=== PATIENT | female | born 1955 | race Caucasian/White ===

== ENCOUNTER 2023-04-18 06:45 | Day surgery (SDC) | payer OTHER ==
[~2023-04-18] VITALS: Ht 160 cm; Wt 83.0 kg
[2023-04-18] MEDS ORDERED: MEPERIDINE 100 MG INJ. 100 MG/ML VIAL ONE (07:14)
[2023-04-18] MEDS ORDERED: MIDAZOLAM HCL 5 MG/5 ML VIAL ONE (07:14)
[2023-04-18 12:46] VITALS: O2SAT 98
[2023-04-18 16:40] VITALS: BP_SYST 115; PULSE 69; RESP 18
== END 2023-04-18 09:28 | disposition home or self-care (01) ==
LOC: SDS 06:45 → SMU 06:47 → EDSEX 08:30 → SDS 09:28
PROVIDERS: ATTEND Internal Medicine Gastroenterology
DX: Z12.11 Encounter for screening for malignant neoplasm of colon (principal); K57.30 Diverticulosis of large intestine without perforation or abscess without bleeding; K64.8 Other hemorrhoids; M19.90 Unspecified osteoarthritis, unspecified site; F32.A Depression, unspecified; M79.7 Fibromyalgia; Z98.84 Bariatric surgery status; Z79.899 Other long term (current) drug therapy
CPT/HCPCS: 99152; 82962; G0121; G0378; J2250; J2175; 45378

== ENCOUNTER 2023-07-09 11:24 | Inpatient (IN) | payer OTHER ==
[~2023-07-09] VITALS: Ht 160 cm; Wt 87.8 kg
[2023-07-09 11:36] VITALS: BP_SYST 136; PULSE 103; RESP 18; TEMP 97.9; O2SAT 94
[2023-07-09] MEDS ORDERED: iohexoL 350 mgI/mL, 100 ML INFUS..BTL IV ONE (11:50)
[2023-07-09 12:31] LABS: BASOPHILS # (AUTO) 0.1 K/uL (0.0-0.2); EOSINOPHILS # (AUTO) 0.1 K/uL (0.0-0.4); EOSINOPHILS % (AUTO) 1.5 % (0.0-4.0); HEMATOCRIT 36.7 % (36-48); HEMOGLOBIN 12.6 g/dL (12.0-16.0); LYMPHOCYTES % (AUTO) 37.6 % (20.5-51.5); MEAN CORPUSCULAR HEMOGLOBIN 30 pg (27-31); MEAN CORPUSCULAR HGB CONC 34 % (32-36); MEAN CORPUSCULAR VOLUME 87 fL (79.0-98.0); MONOCYTES # (AUTO) 0.5 K/uL (0.0-1.0); MONOCYTES % (AUTO) 6.5 % (1.7-9.3); NEUTROPHILS # (AUTO) 4.2 K/uL (1.8-7.7); NEUTROPHILS % (AUTO) 53.4 % (40.0-70.0); PLATELET COUNT (AUTO) 250 K/uL (130-430); RED BLOOD CELL COUNT(AUTO) 4.21 MIL/uL (4.2-6.2); WHITE BLOOD COUNT (AUTO) 7.9 K/uL (4.8-10.8)
[2023-07-09 12:43] LABS: CALCIUM 9.4 mg/dL (8.4-11.0); CREATININE 0.86 mg/dL (0.55-1.30); POTASSIUM 4.6 mmol/L (3.5-5.1)
[2023-07-09 12:45] LABS: INR 1.1 (0.8-1.2); PROTHROMBIN TIME 11.2 SECS (9.5-12.5)
[2023-07-09] MEDS: ASPIRIN 81 MG TAB.CHEW PO ONE (14:11)
[2023-07-09] MEDS ORDERED: ACETAMINOPHEN 325 MG TABLET PO PRN (14:45)
[2023-07-09] MEDS ORDERED: HYDROcodone/ACETAMIN 5-325 MG TAB (NORCO/ VICODIN) PO PRN (15:15)
[2023-07-09] MEDS ORDERED: IPRATROPIUM/ALBUTEROL SULFATE 3 ML AMPUL.NEB (DUONEB) INH PRN (15:15)
[2023-07-09] MEDS ORDERED: ZOLPIDEM TARTRATE 5 MG TABLET PO PRN (15:15)
[2023-07-09] MEDS ORDERED: LORazepam 2 MG/ML VIAL IVP PRN (15:15)
[2023-07-09] MEDS ORDERED: ROSU20TA2 PO (16:57)
[2023-07-09] MEDS ORDERED: LOSA1TAB43 PO (16:57)
[2023-07-09] MEDS ORDERED: METF-1069 PO (16:57)
[2023-07-09] MEDS ORDERED: MULT-1089 PO (16:57)
[2023-07-09 17:39] VITALS: BP_SYST 132; PULSE 80; O2SAT 98
[2023-07-09] MEDS ORDERED: ROSUVASTATIN CALCIUM 5 MG/TAB (CRESTOR) PO SCH (21:00)
[2023-07-09 22:23] VITALS: BP_SYST 126; PULSE 67; RESP 18; TEMP 98.4
[2023-07-09] MEDS: ATORVASTATIN 20 MG TABLET PO SCH (22:53)
[2023-07-10] VITALS (8 sets, daily range): BP systolic 94–131; PULSE 64–80; RESP 18; TEMP 97–98.7; O2SAT 95–99
[2023-07-10 04:37] LABS: BASOPHILS # (AUTO) 0.1 K/uL (0.0-0.2); BASOPHILS % (AUTO) 0.8 % (0.0-2.0); EOSINOPHILS # (AUTO) 0.2 K/uL (0.0-0.4); EOSINOPHILS % (AUTO) 2.3 % (0.0-4.0); HEMATOCRIT 36.9 % (36-48); HEMOGLOBIN 12.5 g/dL (12.0-16.0); LYMPHOCYTES # (AUTO) 3.1 K/uL (1.0-5.5); MEAN CORPUSCULAR HEMOGLOBIN 30 pg (27-31); MEAN CORPUSCULAR HGB CONC 34 % (32-36); MEAN CORPUSCULAR VOLUME 87 fL (79.0-98.0); MONOCYTES # (AUTO) 0.6 K/uL (0.0-1.0); NEUTROPHILS # (AUTO) 3.8 K/uL (1.8-7.7); NEUTROPHILS % (AUTO) 48.9 % (40.0-70.0); PLATELET COUNT (AUTO) 247 K/uL (130-430); RED BLOOD CELL COUNT(AUTO) 4.23 MIL/uL (4.2-6.2); RED CELL DISTRIBUTION WIDTH 13.9 % (9.0-15.0); WHITE BLOOD COUNT (AUTO) 7.9 K/uL (4.8-10.8)
[2023-07-10 04:39] LABS: HEMOGLOBIN A1C 5.73 % (<5.7)
[2023-07-10 05:06] LABS: ALBUMIN 3.4 g/dL (3.4-4.8); CALCIUM 9.7 mg/dL (8.4-11.0); CREATININE 0.65 mg/dL (0.55-1.30); POTASSIUM 4.1 mmol/L (3.5-5.1); THYROID STIMULATING HORMONE 5.39 uIu/mL (0.34-4.82); TOTAL BILIRUBIN 0.7 mg/dL (0.0-1.0); TOTAL PROTEIN, SERUM 6.8 g/dL (6.4-8.3)
[2023-07-10] MEDS: LEVOTHYROXINE SODIUM 0.025 MG TABLET PO SCH (07:00)
[2023-07-10] MEDS: ACETAMINOPHEN 325 MG TABLET PO PRN (07:05)
[2023-07-10] MEDS: DOCUSATE SODIUM 100 MG CAPSULE PO SCH (10:25)
[2023-07-10] MEDS: ASPIRIN 81 MG TAB.CHEW PO SCH (10:26)
[2023-07-10] MEDS: DULoxetine HCL 30 MG CAPSULE.DR (CYMBALTA) PO SCH (10:36)
[2023-07-10] MEDS: FAMOTIDINE 20 MG TABLET PO SCH (10:36)
[2023-07-10] MEDS ORDERED: CYM30 PO (10:47)
[2023-07-10] MEDS ORDERED: LEVO25TA7 PO (10:47)
[2023-07-10] MEDS ORDERED: LOSA1TAB37 PO (10:47)
[2023-07-10] MEDS ORDERED: ASPI-1393 PO (11:38)
[2023-07-10] MEDS ORDERED: CLOP75TA32 PO (11:38)
[2023-07-10] MEDS ORDERED: CLOPIDOGREL BISULFATE 75 MG TABLET PO ONE (12:00)
[2023-07-11] MEDS ORDERED: CLOPIDOGREL BISULFATE 75 MG TABLET PO SCH (09:00)
== END 2023-07-10 14:40 | disposition home or self-care (01) | DRG 69 ==
LOC: SED 11:24 → STU 14:42
PROVIDERS: ADMIT Internal Medicine; ATTEND Internal Medicine
DX: G45.9 Transient cerebral ischemic attack, unspecified (principal); I10 Essential (primary) hypertension; E03.9 Hypothyroidism, unspecified; E78.5 Hyperlipidemia, unspecified; Z79.899 Other long term (current) drug therapy
CPT/HCPCS: 36415; 70450; 70496; 70498; 70551; 71045; 80048; 80053; 80061; 83037; 84443; 85025; 85610; 85730; 93005; 93306; 94760; 97112-GP; 97116-GP; 99291; G0378; Q9967

== ENCOUNTER 2023-12-26 06:00 | Day surgery (SDC) | payer OTHER ==
[~2023-12-26] VITALS: Ht 160 cm; Wt 83.1 kg
[~2023-12-26 06:00] MED LIST: ASPI-1393 PO; CLOP75TA32 PO; CYM30 PO; LEVO25TA7 PO; LOSA1TAB37 PO; METF-1069 PO; ROSU20TA2 PO
[2023-12-26] MEDS ORDERED: SIMETHICONE 40 MG/0.6 ML ML ONE (06:58)
[2023-12-26] MEDS ORDERED: MEPERIDINE 100 MG INJ. 100 MG/ML VIAL ONE (06:59)
[2023-12-26] MEDS ORDERED: MIDAZOLAM HCL 5 MG/5 ML VIAL ONE (06:59)
[2023-12-26 09:43] VITALS: TEMP 97.9; O2SAT 97
[2023-12-26 17:52] VITALS: BP_SYST 124; PULSE 63; RESP 15
== END 2023-12-26 09:36 | disposition home or self-care (01) ==
LOC: SDS 06:00 → SMU 06:00 → SDS 09:36
PROVIDERS: ATTEND Internal Medicine Gastroenterology
DX: R10.13 Epigastric pain (principal); K29.50 Unspecified chronic gastritis without bleeding; K21.9 Gastro-esophageal reflux disease without esophagitis; I10 Essential (primary) hypertension; E11.9 Type 2 diabetes mellitus without complications; F32.A Depression, unspecified; M19.90 Unspecified osteoarthritis, unspecified site; E78.5 Hyperlipidemia, unspecified; K44.9 Diaphragmatic hernia without obstruction or gangrene; Z98.84 Bariatric surgery status; Z79.899 Other long term (current) drug therapy
CPT/HCPCS: 43239; 99152; 87081; 36415; 82948; 88305; 88312; 88313; G0378; J2250; J2175